=== PATIENT | male | born 1965 | race Caucasian/White ===

== ENCOUNTER 2017-02-20 15:08 | Emergency (ER) | payer MEDICARE ==
[2017-02-20 15:14] VITALS: BP 138/96
[2017-02-20] MEDS ORDERED: SULFAMETHOXAZOLE/TRIMETHOPRIM 800-160 MG TABLET PO ONE (15:19)
[2017-02-20] MEDS ORDERED: IBUPROFEN 600 MG TABLET PO ONE (15:20)
--- NOTE | 2017-02-20 15:23 | ER Document Report ---
ED Skin Rash/Insect Bite/Abscs - General Chief Complaint: Abscess Stated Complaint: CYST RIGHT BUTTOCK Time Seen by Provider: 02/20/17 15:15 Notes: The patient is a 51-year-old male, past medical history chronic drinker, presents with a rash and pain on his right lateral buttock over the past 4 days. He has never had this before. Denies fevers, numbness, tingling, difficulty walking, change in bowel or bladder, nausea or vomiting. TRAVEL OUTSIDE OF THE [place] IN LAST 30 DAYS: No - Related Data Allergies/Adverse Reactions: No Known Allergies Allergy (Verified 03/03/13 15:24) Past Medical History - General Information source: Patient - Social History Smoking Status: Current Every Day Smoker Frequency of alcohol use: None Family History: Reviewed & Not Pertinent, CAD Patient has suicidal ideation: No Patient has homicidal ideation: No Pulmonary Medical History: Reports: Hx Pneumonia Denies: Hx Tuberculosis Neurological Medical History: Reports: Hx Cerebrovascular Accident - unk, Hx Seizures - minor Renal/ Medical History: Denies: Hx Peritoneal Dialysis GI Medical History: Reports: Hx Gastroesophageal Reflux Disease Musculoskeltal Medical History: Reports Hx Arthritis - knuckles Psychiatric Medical History: Reports: Hx Anxiety, Hx Depression - non-compliant with effexor Past Surgical History: Denies: Hx Pacemaker - Immunizations Hx Diphtheria, Pertussis, Tetanus Vaccination: No Review of Systems - Review of Systems Notes: REVIEW OF SYSTEMS: CONSTITUTIONAL: -fevers, -chills EENT: -eye pain, -difficulty swallowing, -nasal congestion CARDIOVASCULAR:-chest pain, -syncope. RESPIRATORY: -cough, -SOB GASTROINTESTINAL: -abdominal pain, - nausea, -vomiting, -diarrhea GENITOURINARY: -dysuria, -hematuria MUSCULOSKELETAL: -back pain, -neck pain SKIN: +right buttock rash HEMATOLOGIC: -easy bruising or bleeding. LYMPHATIC: -swollen, enlarged glands. NEUROLOGICAL: -altered mental status or loss of consciousness, -headache, - neurologic symptoms PSYCHIATRIC: -anxiety, -depression. ALL OTHER SYSTEMS REVIEWED AND NEGATIVE. Physical Exam - Vital signs Vitals: Temp Pulse Resp BP Pulse Ox 98.2 F 82 16 138/96 H 98 02/20/17 15:11 02/20/17 15:11 02/20/17 15:11 02/20/17 15:11 02/20/17 15:11 - Notes Notes: PHYSICAL EXAMINATION: GENERAL: Well-appearing, well-nourished and in no acute distress. HEAD: Atraumatic, normocephalic. EYES: Pupils equal round and reactive to light, extraocular movements intact, sclera anicteric, conjunctiva are normal. ENT: nares patent, oropharynx clear without exudates. Moist mucous membranes. NECK: Normal range of motion, supple without lymphadenopathy LUNGS: Breath sounds clear to auscultation bilaterally and equal. No wheezes rales or rhonchi. HEART: Regular rate and rhythm without murmurs ABDOMEN: Soft, nontender, normoactive bowel sounds. No guarding, no rebound. No masses appreciated. EXTREMITIES: Normal range of motion, no pitting or edema. No cyanosis. NEUROLOGICAL: Cranial nerves grossly intact. Normal speech, normal gait. Normal sensory and motor exams. PSYCH: Normal mood, normal affect. SKIN: 6 cm erythematous region with hardening but no fluctuance in center, mild tenderness Course - Re-evaluation Re-evalutation: Patient has evidence of cellulitis and possible early abscess on his right lateral buttocks. He appears well. Do not see an abscess that can be I&D that this time. Instructed patient to begin antibiotics and warm compresses. He will return in 2-3 days for a wound recheck and see if an abscess has formed that needs any drainage. - Vital Signs Vital signs: Temp Pulse Resp BP Pulse Ox 98.2 F 82 16 138/96 H 98 02/20/17 15:11 02/20/17 15:11 02/20/17 15:11 02/20/17 15:11 02/20/17 15:11 Discharge - Discharge Clinical Impression: Cellulitis of buttock, left Condition: Stable Disposition: HOME, SELF-CARE Additional Instructions: CELLULITIS: You have an infection of your skin and underlying soft tissues called cellulitis. This is due to bacteria, which can enter through any break in the skin, or even through an irritated hair follicle. Untreated, cellulitis will usually worsen. Antibiotics are required. Usually, warm packs or warm soaks, and elevation of the infected area are recommended. You should start getting better within 24 to 36 hours. Most infections respond quickly to the right medication. Follow-up care is important, however, to check for abscess (boil) formation, unsuspected foreign body, or resistant infection. If you develop fever, chills, or if the area of infection is becoming rapidly more swollen or painful, call the doctor at once. ANTIBIOTIC THERAPY: You have been given an antibiotic prescription. It's important that you take all the medication, unless instructed otherwise by your physician. Failure to complete the entire course can result in relapse of your condition. Common side effects of antibiotics include nausea, intestinal cramping, or diarrhea. Women may develop vaginal yeast infections, and babies can get yeast (thrush) in the mouth following the use of antibiotics. Contact your physician if you develop significant side effects from this medication. Allergy to this antibiotic can result in hives, wheezing, faintness, or itching. If symptoms of allergy occur, stop the medication and call the doctor. TRIMETHOPRIM-SULFA: You have been given a prescription for trimethoprim-sulfa (TMS, Septra, Bactrim). This is a combination antibiotic of the sulfa class, often used for urinary tract infections, middle ear infections, bronchitis, shigella intestinal infection, and Pneumocystis pneumonia. TMS is usually well-tolerated. Occasional side effects include nausea and decreased appetite. Septra is not recommended for infants less than two months of age. Do not take this medication if you have experienced severe side effects or allergy to sulfa medicine. You should stop this medicine at once and contact your physician if you develop any rash, joint pain, shortness of breath, bruising, or jaundice ( yellow color in the skin), or if you develop any other new or unusual symptoms. FOLLOW-UP CARE: If you have been referred to a physician for follow-up care, call the physician s office for an appointment as you were instructed or within the next two days. If you experience worsening or a significant change in your symptoms, notify the physician immediately or return to the Emergency Department at any time for re-evaluation. Prescriptions: Sulfamethoxazole/Trimethoprim [Bactrim Ds Tablet] 2 each PO Q12H 10 Days Referrals: FRANCIS CARTWRIGHT MD [Primary Care Provider] - Follow up as needed
== END 2017-02-20 15:28 | disposition home or self-care (01) ==
LOC: ER 15:08
DX: L03.317 Cellulitis of buttock (principal); F17.200 Nicotine dependence, unspecified, uncomplicated; Z86.73 Personal history of transient ischemic attack (TIA), and cerebral infarction without residual deficits
CPT/HCPCS: 99282; A9270 ×2

== ENCOUNTER 2020-09-17 09:48 | Emergency (ER) | payer MEDICARE ==
[2020-09-17 10:17] LABS: ABSOLUTE BASOPHILS # (AUTO) 0.1 10^3/uL (0.0-0.2); ABSOLUTE EOSINOPHILS # (AUTO) 0.1 10^3/uL (0.0-0.6); ABSOLUTE MONOCYTES (AUTO) 0.5 10^3/uL (0.1-1.4); ABSOLUTE NEUT (AUTO) 3.5 10^3/uL (1.7-8.2); EOSINOPHILS % (AUTO) 1.9 % (0-6); HEMATOCRIT 41.2 % (37.9-51.0); HEMOGLOBIN 13.7 g/dL (13.5-17.0); MEAN CORPUSCULAR HGB CONC 33.3 g/dL (32.0-36.0); MEAN CORPUSCULAR VOLUME 90 fl (80-97); PLATELET COUNT 261 10^3/uL (150-450); RED BLOOD COUNT 4.57 10^6/uL (4.35-5.55); RED CELL DISTRIBUTION WIDTH 13.5 % (11.5-14.0); SEGMENTED NEUTROPHILS % (AUTO) 68.1 % (42-78); TOTAL CELLS COUNTED % (AUTO) 100 %; WHITE BLOOD COUNT 5.2 10^3/uL (4.0-10.5)
[2020-09-17 10:34] LABS: INTERNATIONAL RATION (INR) 0.83; PROTHROMBIN TIME 11.6 SEC (11.4-15.4)
[2020-09-17 10:37] LABS: D-DIMER 0.32 ug/mL (0.00-0.50)
[2020-09-17 10:39] LABS: ALKALINE PHOSPHATASE 49 U/L (38-126); ASPARTATE AMINO TRANSFERASE 43 U/L (17-59); BILIRUBIN,DIRECT 0.2 mg/dL (0.0-0.4); BILIRUBIN,TOTAL 0.2 mg/dL (0.2-1.3); BLOOD UREA NITROGEN 15 mg/dL (7-20); CALCIUM 8.1 mg/dL (8.4-10.2); CREATINE KINASE 68 U/L (55-170); GLUCOSE 124 mg/dL (75-110); POTASSIUM 4.8 mmol/L (3.6-5.0); TOTAL PROTEIN 5.2 g/dL (6.3-8.2)
[2020-09-17 10:45] LABS: ANION GAP 5 (5-19); CARBON DIOXIDE 26 mmol/L (22-30); CHLORIDE 107 mmol/L (98-107)
--- NOTE | 2020-09-17 10:45 | ER Document Report ---
Entered by LUISANA HADDAD SCRIBE 09/17/20 1018 Acting as scribe for:JOANNE CARRENO MD ED General - General Chief Complaint: Syncope Stated Complaint: SYNCOPAL EPISODE Time Seen by Provider: 09/17/20 10:16 Mode of Arrival: Medic Information source: Patient, Emergency Med Personnel Notes: This 54 year old male patient presents to the ED today via EMS for evaluation after a possible syncopal episode that occurred prior to arrival. Per EMS, the episode was not witnessed, but the patient was found in a prone position by the patient's who gave x3 chest compressions due to suspected apnea. The patient did regain consciousness and was AAOX4 when EMS arrived. Patient states that the last thing he remembers is drinking coffee prior to the incident and the events after he woke up. He reports severe neck pain, back pain, and an abrasion over his right eyebrow which was sustained due to the fall. Denies any other complaints. TRAVEL OUTSIDE OF THE [place] IN LAST 30 DAYS: No - Related Data Allergies/Adverse Reactions: No Known Allergies Allergy (Verified 03/03/13 15:24) Home Medications: gabapentin, hydroxazine, cycrochrodine, Past Medical History - General Information source: Patient, [facility] Records - Social History Smoking Status: Current Every Day Smoker Cigarette use (# per day): Yes - 1.5 ppd Chew tobacco use (# tins/day): No Smoking Education Provided: No Frequency of alcohol use: None Drug Abuse: None Lives with: Spouse/Significant other Family History: Reviewed & Not Pertinent, CAD Patient has homicidal ideation: No Pulmonary Medical History: Reports: Hx Pneumonia Neurological Medical History: Reports: Hx Cerebrovascular Accident - unk, Hx Seizures - minor GI Medical History: Reports: Hx Gastroesophageal Reflux Disease Musculoskeletal Medical History: Reports Hx Arthritis - knuckles Psychiatric Medical History: Reports: Hx Anxiety, Hx Depression - non-compliant with effexor - Immunizations Hx Diphtheria, Pertussis, Tetanus Vaccination: No Review of Systems - Review of Systems Constitutional: No symptoms reported EENT: No symptoms reported Cardiovascular: See HPI, Syncope Respiratory: No symptoms reported Gastrointestinal: No symptoms reported Genitourinary: No symptoms reported Male Genitourinary: No symptoms reported Musculoskeletal: See HPI, Back pain, Neck pain Skin: No symptoms reported Hematologic/Lymphatic: No symptoms reported Neurological/Psychological: No symptoms reported -: Yes All other systems reviewed and negative Physical Exam - Vital signs Vitals: Temp 97.8 F 09/17/20 09:48 - General General appearance: Alert In distress: None - HEENT Head: Normocephalic, Abrasions - There are abrasions above the medial right eyeb row and over the right zygomatic arch region.. No: Atraumatic Eyes: Normal Extraocular movements intact: Yes Pupils: PERRL Mouth/Lips: Other - No tongue lacerations Neck: Other - Posterior cervical musculature tenderness to palpation. The cervical spine is immobilized by a rigid c-collar. - Respiratory Respiratory status: No respiratory distress Chest status: Nontender Breath sounds: Normal Chest palpation: Normal - Cardiovascular Rhythm: Regular Heart sounds: Normal auscultation Murmur: No - Abdominal Inspection: Normal Distension: No distension Bowel sounds: Normal Tenderness: Nontender - Abdomen soft Organomegaly: No organomegaly - Back Back: Tender - Tenderness to palpation of the thoracic spine between the scapula - Extremities General upper extremity: Normal inspection General lower extremity: Normal inspection. No: Edema - Neurological Neuro grossly intact: Yes Cognition: Normal - No evidence of retrograde amnesia. Patient is able to recall how he sustained scrapes to his left upper arm from a prior incident. Orientation: AAOx4 Bess Coma Scale Eye Opening: Spontaneous Bess Coma Scale Verbal: Oriented Bess Coma Scale Motor: Obeys Commands [place] Coma Scale Total: 15 - Psychological Associated symptoms: Normal affect, Normal mood - Skin Skin Temperature: Warm Skin Moisture: Dry Skin Color: Normal Course - Vital Signs Vital signs: Temp Pulse Resp BP Pulse Ox 97.8 F 72 138/101 H 09/17/20 09:48 09/17/20 12:28 09/17/20 12:28 - Laboratory Results Result Diagrams: 09/17/20 09:50 09/17/20 09:50 Laboratory Results Interpreted: 09/17/20 09/17/20 09:50 12:30 Glucose 124 H Calcium 8.1 L Total Protein 5.2 L Albumin 3.0 L Urine Protein 30 H Urine Ascorbic Acid 20 H Critical Laboratory Results Reviewed: No Critical Results - Radiology Results Radiology Results Interpreted: 09/17/20 13:12 CT scan of the head and cervical spine did not show acute abnormality. Critical Radiology Results Reviewed: No Critical Results - EKG Interpretation by Me EKG shows normal: Sinus rhythm, [place], Intervals, QRS Complexes, ST-T Waves Rate: Normal - 70 Rhythm: NSR When compared to previous EKG there are: No significant change Discharge - Discharge Clinical Impression: Syncope and collapse Abrasion of face Qualifiers: Encounter type: initial encounter Qualified Code(s): S00.81XA - Abrasion of other part of head, initial encounter Condition: Stable Disposition: HOME, SELF-CARE Additional Instructions: Syncopal Episode: Syncope (fainting or near-fainting) can occur from many different health problems. Or it can be a simple fainting spell requiring no treatment. It is safe for you to go home, but further evaluation will likely be necessary. Your work-up may include tests for internal bleeding, heart disease, medication problems, or near-strokes. Tests are not always required, however, depending on the nature of your problem. The warning signs of an impending faint include: dizziness, lightheadedness, nausea, hot flashes, tingling, and weakness. If this happens, lay down and put your feet up, then wait until all of these symptoms have passed before standing up again. If these episodes become recurrent, or if you develop chest pain, heart palpitations, mental confusion, blurred vision, or headache, then you should call the physician, or go to the emergency room. You had a syncopal episode this morning and fell to the floor. There were no significant injuries found. Your blood levels were normal, your heart enzymes were normal, your EKG was normal. Scans of your head neck did not show acute injuries. Syncopal episode like that could be due to a drop in blood pressure from inadequate hydration, it could be caused by a cardiac arrhythmia, it could be due to a seizure. At this time we cannot say for certain what triggered your syncopal episode. For now you should drink plenty of fluids get plenty of rest. Keep the abrasions on your face clean and dressed with an antibiotic ointment. Use ice packs today to limit swelling. Continue your regular medications. You may add Tylenol and ibuprofen for pain control if needed. For now you should not drive, climb ladders, or do any other activity that puts you or others at risk in case you have another episode of blacking out. Follow-up with your primary care provider next week for reevaluation and decisions about further work-up. RETURN TO THE EMERGENCY ROOM IF ANY NEW OR WORSENING SYMPTOMS. I personally performed the services described in the documentation, reviewed and edited the documentation which was dictated to the scribe in my presence, and it accurately records my words and actions.
[2020-09-17 10:49] LABS: CREATINE KINASE MB 0.63 ng/mL (<4.55)
[2020-09-17 10:51] LABS: TROPONIN I < 0.012 ng/mL
[2020-09-17] MEDS ORDERED: NORMAL SALINE 1000 ML 1,000 ML IV ONE (10:57)
--- NOTE | 2020-09-17 11:07 | RADIOLOGY REPORT (SQ) ---
EXAM DESCRIPTION: CT HEAD WITHOUT; CT CERVICAL SPINE WITHOUT IMAGES COMPLETED DATE/TIME: 09/17/2020 10:47 am REASON FOR STUDY: Fall, head injury, neck pain COMPARISON: 12/31/2007 CT head TECHNIQUE: Axial images acquired through the brain and cervical spine without intravenous contrast. Images reviewed with brain, subdural, lung, soft tissue and bone windows. Reconstructed coronal and sagittal MPR images reviewed. Images stored on PACS. All CT scanners at this facility use dose modulation, iterative reconstruction, and/or weight based d osing when appropriate to reduce radiation dose to as low as reasonably achievable (ALARA). [facility]: Dose Right [facility]: CareDose [facility]: Dose Right [facility]: Teradose 4D [facility]: [employer] RADIATION DOSE: CT Rad equipment meets quality standard of care and radiation dose reduction techniq ues were employed. CTDIvol: 53.2 mGy. DLP: 1150 mGy-cm.; CT Rad equipment meets quality standard of c are and radiation dose reduction techniques were employed. CTDIvol: 18.5 mGy. DLP: 365 mGy-cm.mGy. LIMITATIONS: None. FINDINGS: Brain No hemorrhage or mass or shift. No skull fracture. Orbits intact. Clear paranasal sinuses. Cervical spine Normal alighment. No fracture. Soft tissues normal, no pneumothorax. Multilevel disc and facet degenerative changes. IMPRESSION: No acute brain abnormality. No acute cervical spine abnormality TECHNICAL DOCUMENTATION: JOB ID: [id number] Quality ID # [id number]: Final reports with documentation of one or more dose reduction techniques (e.g., Au tomated exposure control, adjustment of the mA and/or kV according to patient size, use of iterative reconstruction technique) 2010 [employer]- All Rights Reserved Reading location - IP/workstation name: [email or web address]
[2020-09-17 13:08] LABS: APPEARANCE,URINE CLEAR; BILIRUBIN,URINE NEGATIVE (NEGATIVE); COLOR,URINE YELLOW; GLUCOSE, URINE NEGATIVE (NEGATIVE); KETONES,URINE NEGATIVE (NEGATIVE); LEUKOCYTE ESTERASE,URINE NEGATIVE (NEGATIVE); NITRITE,URINE NEGATIVE (NEGATIVE); PROTEIN,URINE 30 mg/dL (NEGATIVE); URINE SPECIFIC GRAVITY 1.012; UROBILINOGEN,URINE NEGATIVE mg/dL (<2.0)
[2020-09-17 14:28] VITALS: BP 125/95
--- NOTE | 2020-09-17 19:38 | EKG REPORT ---
SEVERITY:- NORMAL ECG - SINUS RHYTHM : Confirmed by: Mumtaz Gleason MD 17-Sep-2020 19:36:38
== END 2020-09-17 14:20 | disposition home or self-care (01) ==
LOC: ER 09:48
DX: R55 Syncope and collapse (principal); S00.81XA Abrasion of other part of head, initial encounter; M54.2 Cervicalgia; X58.XXXA Exposure to other specified factors, initial encounter; Y92.009 Unspecified place in unspecified non-institutional (private) residence as the place of occurrence of the external cause; F17.210 Nicotine dependence, cigarettes, uncomplicated
CPT/HCPCS: 93005; 99285; 96360; 36415; 82553; 82550; 85025; 85610; 80053; 81001; 84484; 85379; 70450; 72125; 93010; J7030